=== PATIENT | female | born 1990 | race Caucasian/White ===

== ENCOUNTER 2025-04-26 17:41 | Emergency (ER) | payer OTHER ==
[~2025-04-26] VITALS: Ht 165.1 cm; Wt 61.2 kg
[2025-04-26] MEDS ORDERED: KETOROLAC TROMETHAMINE INJ 30 MG/ML VIAL ONE (18:01)
[2025-04-26] MEDS ORDERED: ACETAMINOPHEN ES 500 MG TABLET ONE (18:01)
[2025-04-26] MEDS: ACETAMINOPHEN ES 500 MG TABLET PO ONE (18:09)
[2025-04-26] MEDS: KETOROLAC TROMETHAMINE INJ 30 MG/ML VIAL IM ONE (18:09)
[2025-04-26] MEDS ORDERED: IBUP-1955 PO (19:08)
[2025-04-26] MEDS ORDERED: OXYC-128 PO (19:08)
[2025-04-26 19:56] VITALS: BP 134/66; TEMP 98.3; O2SAT 98
== END 2025-04-26 20:04 | disposition home or self-care (01) ==
LOC: ER 17:54
DX: S92.311A Displaced fracture of first metatarsal bone, right foot, initial encounter for closed fracture (principal); S92.321A Displaced fracture of second metatarsal bone, right foot, initial encounter for closed fracture; S92.331A Displaced fracture of third metatarsal bone, right foot, initial encounter for closed fracture; S92.341A Displaced fracture of fourth metatarsal bone, right foot, initial encounter for closed fracture; F17.200 Nicotine dependence, unspecified, uncomplicated; V89.0XXA Person injured in unspecified motor-vehicle accident, nontraffic, initial encounter; Y93.89 Activity, other specified; Y92.410 Unspecified street and highway as the place of occurrence of the external cause; Y99.9 Unspecified external cause status
CPT/HCPCS: 29515; 73630; 96372; 99283; J1885